=== PATIENT | female | born 1995 | race Caucasian/White ===

== ENCOUNTER 2017-08-22 03:26 | Emergency (ER) | payer OTHER ==
[~2017-08-22] VITALS: Ht 165.1 cm; Wt 110.9 kg
[~2017-08-22 03:26] MED LIST: DEXILANT; MILK OF MAGN PO; ZOFRAN ODT4 MG PO
[2017-08-22 04:11] LABS: HEMATOCRIT 37.8 % (36.0-46.0); HEMOGLOBIN 13.6 G/DL (11.9-15.5); MCH 28.9 PG (29.0-34.0); MCV 80.3 FL (83-99); PLATELET COUNT 285 K/uL (156-360); RBC DIS.WIDTH-SD 37.3 % (39-53); RED BLOOD COUNT 4.71 M/uL (3.80-5.20); WHITE BLOOD COUNT 12.5 K/uL (4.1-10.2)
[2017-08-22 04:20] LABS: CHLORIDE 105 mEq/L (99-109); POTASSIUM 3.4 mEq/L (3.7-5.4); SODIUM 134 mEq/L (136-147)
[2017-08-22 04:22] LABS: GLUCOSE 108 mg/dL (70-99)
[2017-08-22 04:26] LABS: CREATININE 0.7 mg/dL (0.6-1.3); GFR ESTIMATE (CALCULATED) > 59 mL/min/
[2017-08-22 04:27] LABS: UREA NITROGEN (BUN) 14 mg/dL (9-23)
[2017-08-22 04:34] LABS: QUANTITATIVE HCG 7876.9 MIU/ML
[2017-08-22 06:31] VITALS: BP 128/81
== END 2017-08-22 06:32 | disposition home or self-care (01) ==
LOC: EME 03:26
PROVIDERS: Emergency Medicine
DX: O03.9 Complete or unspecified spontaneous abortion without complication (principal); Z3A.08 8 weeks gestation of pregnancy; O99.331 Smoking (tobacco) complicating pregnancy, first trimester; F17.200 Nicotine dependence, unspecified, uncomplicated; O99.611 Diseases of the digestive system complicating pregnancy, first trimester; K21.9 Gastro-esophageal reflux disease without esophagitis; O99.341 Other mental disorders complicating pregnancy, first trimester; F32.9 Major depressive disorder, single episode, unspecified
CPT/HCPCS: 76801; 80048; 84702; 85027; 86900; 86901; 99281; 99284

== ENCOUNTER 2017-10-21 23:14 | Emergency (ER) | payer OTHER ==
[~2017-10-21] VITALS: Ht 165.1 cm; Wt 108.0 kg
[2017-10-22] MEDS ORDERED: NORCO 5/3251 TABLET PO (03:17)
[2017-10-22] MEDS ORDERED: KEFLEX500 MG PO (03:17)
[2017-10-22 03:41] VITALS: BP 144/88
== END 2017-10-22 03:43 | disposition home or self-care (01) ==
LOC: EME 23:14
DX: S01.312A Laceration without foreign body of left ear, initial encounter (principal); S00.83XA Contusion of other part of head, initial encounter; R42 Dizziness and giddiness; Y04.2XXA Assault by strike against or bumped into by another person, initial encounter; Z23 Encounter for immunization; F17.200 Nicotine dependence, unspecified, uncomplicated
CPT/HCPCS: 99281; 99285